=== PATIENT | female | born 1995 | race African-American/Black ===

== ENCOUNTER 2017-06-26 09:33 | Emergency (ER) | payer SELFPAY, OTHER ==
[2017-06-26] MEDS ORDERED: Ibuprofen 800 MG TAB ONE (10:47)
== END 2017-06-26 11:35 | disposition home or self-care (01) ==
LOC: ERS 09:33
DX: B34.9 Viral infection, unspecified (principal)
CPT/HCPCS: 87804; 99283

== ENCOUNTER 2017-09-16 23:42 | Emergency (ER) | payer SELFPAY ==
[2017-09-17] MEDS ORDERED: Ketorolac Tromethamine 60 MG/2 ML VIAL ONE (00:39)
--- NOTE | 2017-09-17 08:00 | RAD ---
RIGHT SHOULDER THREE VIEWS: HISTORY: Arm pain. Pain from the elbow up. COMPARISON: None. FINDINGS: There is no acute fracture or malalignment. The visualized ribs are unremarkable. Acromioclavicular alignment is normal. IMPRESSION: No acute abnormality. POS: BRII
== END 2017-09-17 01:15 | disposition home or self-care (01) ==
LOC: ERS 23:42
DX: M79.601 Pain in right arm (principal); I10 Essential (primary) hypertension
CPT/HCPCS: 96372; J1885

== ENCOUNTER 2017-12-29 07:04 | Emergency (ER) | payer SELFPAY ==
[2017-12-29] MEDS ORDERED: methylPREDNISolone Sod Succ/PF 125 MG/2 ML VIAL ONE (07:20)
[2017-12-29] MEDS ORDERED: Famotidine 20 MG TAB ONE (07:20)
== END 2017-12-29 09:36 | disposition home or self-care (01) ==
LOC: ERS 07:04
DX: L50.0 Allergic urticaria (principal)
CPT/HCPCS: 96361; 96374; 96375; J2930

== ENCOUNTER 2018-07-17 19:07 | Emergency (ER) | payer SELFPAY ==
[2018-07-17 22:00] LABS: Bilirubin Negative (Negative); Blood, Urine Negative (Negative); Clarity CLEAR (Clear); Glucose, Urine (Dipstick) Negative (Negative); Leukocyte Negative (Negative); Nitrite Negative (Negative); Protein, Urine (Dipstick) Negative (Neg-Trace); Specific Gravity, Urine 1.018 (1.002-1.036)
[2018-07-17 22:03] LABS: Pregnancy Test - Urine (BHCG) Negative (Negative); Pregu Control Background? CLEAR/WHITE (CLR/WHITE); Pregu Control Bar Appear? YES (CONTROL BAR); Specific Gravity 1.018 (1.002-1.036)
== END 2018-07-17 22:22 | disposition home or self-care (01) ==
LOC: ERS 19:07
DX: S39.012A Strain of muscle, fascia and tendon of lower back, initial encounter (principal); X58.XXXA Exposure to other specified factors, initial encounter
CPT/HCPCS: 81003; 81025; 87086; 99283

== ENCOUNTER 2020-04-03 08:38 | Emergency (ER) | payer SELFPAY ==
--- NOTE | 2020-04-03 09:38 | RAD ---
RADIOGRAPH RIGHT KNEE 4VIEWS: DATE: 04/03/2020 HISTORY: 24-year-old female with right knee pain and swelling FINDINGS: There is no evidence of fracture or dislocation. There is no evidence of periostitis, permeative lesi on, osteolytic lesion, or osteoblastic lesion. The joint spaces are maintained without erosions or significant osteophytes. No joint effusion is identified. IMPRESSION: Normal
== END 2020-04-03 09:40 | disposition home or self-care (01) ==
LOC: ERS 08:38
DX: M70.51 Other bursitis of knee, right knee (principal)

== ENCOUNTER 2020-11-09 16:21 | Emergency (ER) | payer SELFPAY ==
[2020-11-09] MEDS ORDERED: Ketorolac Tromethamine 30 MG/ML VIAL ONE (16:37)
== END 2020-11-09 17:09 | disposition home or self-care (01) ==
LOC: ERS 16:21
DX: M76.61 Achilles tendinitis, right leg (principal)
CPT/HCPCS: 96372; 99283; J1885

== ENCOUNTER 2021-03-05 09:21 | Emergency (ER) | payer OTHER, SELFPAY ==
[2021-03-05 12:00] LABS: SARS-CoV-2 NAA Rapid Test Not Detected (NotDetected)
== END 2021-03-05 12:48 | disposition home or self-care (01) ==
LOC: ERS 09:21
DX: B34.9 Viral infection, unspecified (principal); Z20.822 Contact with and (suspected) exposure to COVID-19
CPT/HCPCS: 71045; U0002

== ENCOUNTER 2021-05-13 19:57 | Emergency (ER) | payer OTHER ==
[2021-05-13] MEDS ORDERED: Ketorolac Tromethamine 30 MG/ML VIAL ONE (21:47)
== END 2021-05-13 22:05 | disposition home or self-care (01) ==
LOC: ERS 19:57
DX: M25.562 Pain in left knee (principal)
CPT/HCPCS: 96374; J1885

== ENCOUNTER 2023-02-07 08:27 | Emergency (ER) | payer BC, OTHER ==
[2023-02-07] MEDS ORDERED: Ibuprofen 800 MG TAB ONE (08:54)
[2023-02-07] MEDS ORDERED: Acetaminophen 500 MG TAB ONE (08:54)
[2023-02-07] MEDS ORDERED: Ondansetron ODT 4 MG TAB ONE (08:54)
[2023-02-07 09:44] LABS: SARS-CoV-2 NAA Rapid Test Not Detected (NotDetected)
== END 2023-02-07 10:04 | disposition home or self-care (01) ==
LOC: ERS 08:27
DX: B34.9 Viral infection, unspecified (principal); Z20.822 Contact with and (suspected) exposure to COVID-19
CPT/HCPCS: 99284; Q0162

== ENCOUNTER 2023-04-03 12:05 | Emergency (ER) | payer BC ==
[2023-04-03 12:59] LABS: #Eosinphils 0.3 thou/uL (0.0-0.7); #Monocytes 0.7 thou/uL (0.11-0.59); #Neutrophils 2.4 thou/uL (1.40-6.50); %Basophils 0.6 % (0.0-1.0); %Eosinophils 5.4 % (0.0-10.0); %Lymphocytes 31.7 % (21.0-51.0); %Monocytes 14.1 % (0.0-10.0); Hematocrit 41.9 % (36.0-47.0); Mean Corpuscular Hemoglobin 25.2 pg (27.0-31.0); Mean Corpuscular Volume 81.4 fl (78.0-98.0); Mean Platelet Volume 9.8 fL (7.4-10.4); Platelet Count 344 10x3/uL (130-400); RBC Distribution Width 13.7 % (11.5-14.5); Red Blood Cell (RBC) Count 5.15 mill/uL (4.20-5.40)
[2023-04-03 13:25] LABS: ALT (SGPT) 11 U/L (8-55); AST (SGOT) 22 U/L (5-34); Albumin 3.8 g/dL (3.5-5.0); Alkaline Phosphatase 97 U/L (40-110); Anion Gap 10 mmol/L (10-20); BUN (Urea Nitrogen) 9 mg/dL (7.0-18.7); Bilirubin, Total 0.4 mg/dL (0.2-1.2); Calc. Creatinine Clearance 0 mL/min (70-130); Calcium 9.3 mg/dL (7.8-10.44); Carbon Dioxide 29 mmol/L (22-29); Chloride 101 mmol/L (98-107); Estimated GFR 102; Globulin 3.9 g/dL (2.4-3.5); Glucose 88 mg/dL (70-105); Magnesium 1.9 mg/dL (1.6-2.6); Potassium 4.4 mmol/L (3.5-5.1); Protein, Total 7.7 g/dL (6.0-8.3); Sodium 136 mmol/L (136-145); Troponin I Less than 0.010 ng/mL (< 0.028)
== END 2023-04-03 13:40 | disposition home or self-care (01) ==
LOC: ERS 12:05
DX: R07.89 Other chest pain (principal)
CPT/HCPCS: 36415; 71045; 80053; 83735; 84484; 85025; 93005

== ENCOUNTER 2023-08-24 13:25 | Emergency (ER) | payer BC | END 2023-08-24 15:10 | disposition home or self-care (01) | LOC: ERS 13:25 | DX: S66.911A Strain of unspecified muscle, fascia and tendon at wrist and hand level, right hand, initial encounter (principal); Z55.6 Problems related to health literacy; X58.XXXA Exposure to other specified factors, initial encounter ==

== ENCOUNTER 2024-03-21 08:28 | Emergency (ER) | payer BC, SELFPAY ==
[2024-03-21 09:30] LABS: Influenza A by NAA Not Detected (NotDetected); Influenza B by NAA Not Detected (NotDetected); SARS-CoV-2 NAA Rapid Test Not Detected (NotDetected)
[2024-03-21] MEDS ORDERED: Oxymetazoline HCl 0.05% (30 ML BOT) ONE ×2 (10:13→10:15)
== END 2024-03-21 11:00 | disposition home or self-care (01) ==
LOC: ERS 08:28
DX: J18.9 Pneumonia, unspecified organism (principal); H65.93 Unspecified nonsuppurative otitis media, bilateral
CPT/HCPCS: 71045; 87081; 87430

== ENCOUNTER 2024-04-08 08:33 | Emergency (ER) | payer SELFPAY ==
[2024-04-08] MEDS ORDERED: Ketorolac Tromethamine 30 MG (1 mL) VIAL ONE (09:14)
== END 2024-04-08 09:34 | disposition home or self-care (01) ==
LOC: ERS 08:33
DX: M25.562 Pain in left knee (principal)
CPT/HCPCS: 96372; 99282; J1885

== ENCOUNTER 2025-05-02 17:43 | Emergency (ER) | payer OTHER ==
[2025-05-02 18:43] LABS: Pregnancy Test - Urine (BHCG) Negative (Negative); Pregu Control Background? CLEAR/WHITE (CLR/WHITE); Pregu Control Bar Appear? YES (CONTROL BAR)
[2025-05-02] MEDS ORDERED: Dexamethasone 4 MG TAB ONE (18:49)
[2025-05-02] MEDS ORDERED: Acetaminophen 500 MG TAB ONE (18:49)
[2025-05-02] MEDS ORDERED: diphenhydrAMINE 50 MG/ML VIAL ONE (18:49)
[2025-05-02] MEDS ORDERED: Prochlorperazine 10 MG/2 ML VIAL ONE (18:50)
== END 2025-05-02 19:42 | disposition home or self-care (01) ==
LOC: ERS 17:43
DX: J32.9 Chronic sinusitis, unspecified (principal); R29.700 NIHSS score 0
CPT/HCPCS: 70450; 81025; 96374; 96375; J0780; J1200; J8540